=== PATIENT | female | born 1995 | race Caucasian/White ===

== ENCOUNTER 2021-04-27 09:33 | Inpatient (IN) ==
[2021-04-27 11:15] LABS: Influenza A PCR Negative (Negative); Influenza B PCR Negative (Negative); Resp. Syncytial Virus PCR Negative (Negative)
[2021-04-27 12:11] LABS: SARS-CoV-2 by PCR (In House) Negative (Negative)
[2021-04-27] MEDS ORDERED: Acetaminophen 325 MG TABLET PO PRN (13:47)
[2021-04-27] MEDS ORDERED: Haloperidol Lactate 5 MG/ML VIAL IM PRN (13:47)
[2021-04-27] MEDS ORDERED: MOM Conc 10 ML UD.LIQ PO PRN (13:47)
[2021-04-27] MEDS ORDERED: hydrOXYzine pamoate 25 MG CAPSULE PO PRN (13:47)
[2021-04-27] MEDS ORDERED: QUEtiapine Fumarate 25 MG TABLET PO PRN (13:47)
[2021-04-27] MEDS ORDERED: haloperidoL 5 MG TABLET PO PRN (13:47)
[2021-04-27] MEDS ORDERED: *HR* LORazepam 1 MG TABLET PO PRN (13:47)
[2021-04-27] MEDS ORDERED: *HR* LORazepam 2 MG/ML VIAL IM PRN (13:47)
[2021-04-27] MEDS ORDERED: Mag Hydrox/Al Hydrox/Simeth 30 ML UDC PO PRN (13:47)
[2021-04-27] MEDS: Ibuprofen 400 MG TABLET PO PRN (15:21)
[2021-04-28] MEDS: Vitamin B Complex/Vit C/Vit E 1 EACH TABLET PO SCH (08:53)
[2021-04-29] MEDS: Vitamin B Complex/Vit C/Vit E 1 EACH TABLET PO SCH (08:57)
[2021-04-29] MEDS: RisperiDONE-M 1 MG TAB.RAPDIS PO SCH (21:02)
[2021-04-30] MEDS: Vitamin B Complex/Vit C/Vit E 1 EACH TABLET PO SCH (08:41)
[2021-04-30] MEDS: RisperiDONE-M 1 MG TAB.RAPDIS PO SCH (08:48)
[2021-05-01] MEDS: RisperiDONE-M 1 MG TAB.RAPDIS PO SCH ×3 (00:22→20:20)
[2021-05-01] MEDS: Vitamin B Complex/Vit C/Vit E 1 EACH TABLET PO SCH (08:52)
[2021-05-02] MEDS: RisperiDONE-M 1 MG TAB.RAPDIS PO SCH ×2 (09:38→20:56)
[2021-05-02] MEDS: Vitamin B Complex/Vit C/Vit E 1 EACH TABLET PO SCH (09:38)
[2021-05-03] MEDS: Vitamin B Complex/Vit C/Vit E 1 EACH TABLET PO SCH (08:51)
[2021-05-03] MEDS: RisperiDONE-M 1 MG TAB.RAPDIS PO SCH ×2 (08:52→21:17)
[2021-05-04] MEDS: Vitamin B Complex/Vit C/Vit E 1 EACH TABLET PO SCH (08:41)
[2021-05-04] MEDS: RisperiDONE-M 1 MG TAB.RAPDIS PO SCH (08:41)
[2021-05-04] MEDS: Ibuprofen 400 MG TABLET PO PRN (09:01)
[2021-05-04] MEDS ORDERED: RisperiDONE-M 1 MG TAB.RAPDIS PO SCH (21:00)
[2021-05-05] MEDS: Vitamin B Complex/Vit C/Vit E 1 EACH TABLET PO SCH (08:44)
[2021-05-05] MEDS ORDERED: RisperiDONE-M 1 MG TAB.RAPDIS PO SCH (09:00)
[2021-05-05] MEDS ORDERED: Paliperidone Palmitate 234 MG/1.5 ML SYRINGE IM ONE (11:00)
[2021-05-05] MEDS ORDERED: polyethylene glycoL 3350 17 GM POWD.PACK PO PRN (13:59)
[2021-05-06] MEDS: Vitamin B Complex/Vit C/Vit E 1 EACH TABLET PO SCH (08:12)
[2021-05-06] MEDS: Ibuprofen 400 MG TABLET PO PRN ×2 (14:08→17:27)
[2021-05-06 21:47] VITALS: O2SAT 99
[2021-05-07] MEDS: Ibuprofen 400 MG TABLET PO PRN ×2 (04:53→12:31)
[2021-05-07] MEDS: Vitamin B Complex/Vit C/Vit E 1 EACH TABLET PO SCH (09:45)
[2021-05-07 09:51] VITALS: BP 112/72; PULSE 86; TEMP 98.9
== END 2021-05-07 16:00 | disposition home or self-care (01) | DRG 753 ==
LOC: EMEROOARM 09:33 → 1ANU 12:29
PROVIDERS: ADMIT Psychiatry & Neurology Forensic Psychiatry; ATTEND Psychiatry & Neurology Forensic Psychiatry